=== PATIENT | male | born 1990 | race Caucasian/White ===

== ENCOUNTER 2017-10-11 06:39 | Emergency (ER) | payer MEDICAID, OTHER ==
[~2017-10-11] VITALS: Ht 185.4 cm; Wt 70.4 kg
[2017-10-11] MEDS ORDERED: ONDANSETRON ODT 4 MG ONE (07:13)
[2017-10-11] MEDS ORDERED: KETOROLAC 30 MG/1 ML ONE (07:13)
[2017-10-11] MEDS ORDERED: MORPHINE SULFATE 4 MG/ML, 1ML ONE (07:13)
[2017-10-11] MEDS ORDERED: MORPHINE SULFATE 4 MG/ML, 1ML IVPush PRN (07:30)
[2017-10-11] MEDS ORDERED: KETOROLAC 30 MG/1 ML IVPush ONE (07:30)
[2017-10-11] MEDS ORDERED: SODIUM CHLORIDE FLUSH 10ML SYR IVF ONE (07:30)
[2017-10-11] MEDS ORDERED: ONDANSETRON ODT 4 MG PO ONE (07:30)
[2017-10-11 07:51] LABS: ALBUMIN 3.7 g/dL (3.4-5.0); ANION GAP 12 mmol/L (5-15); CALCIUM 8.7 mg/dL (8.5-10.1); CHLORIDE 108 mmol/L (98-107); CREATININE 1.07 mg/dL (0.7-1.3)
[2017-10-11 07:56] LABS: BASOPHILS # (AUTO) 0.04 x10^3/uL (0-0.1); BASOPHILS % (AUTO) 1 % (0-1); EOSINOPHILS % (AUTO) 2 % (1-7); LYMPHOCYTES % (AUTO) 47 % (22-44); MD NO; MEAN CORPUSCULAR HEMOGLOBIN 30.9 pg (27.5-34.5); MEAN CORPUSCULAR HGB CONC 33.8 g/dL (33.2-36.2); MEAN CORPUSCULAR VOLUME 91.3 fL (81-97); MEAN PLATELET VOLUME 7.4 fL (7.4-10.4); MONOCYTES # (AUTO) 0.54 x10^3/uL (0.2-0.8); MONOCYTES % (AUTO) 8 % (2-9); NEUTROPHILS # (AUTO) 2.86 x10^3/uL (1.8-6.8); NEUTROPHILS % (AUTO) 43 % (42-75); PLATELET COUNT 277 x10^3/uL (130-400); RED BLOOD COUNT 5.09 x10^6/uL (4.38-5.82)
[2017-10-11] MEDS ORDERED: METOCLOPRAMIDE 5 MG/ML, 2ML IVPush ONE (08:30)
[2017-10-11 09:22] LABS: CULTURE INDICATED? YES; MICROSCOPIC INDICATED
[2017-10-11 11:18] VITALS: BP 128/74
== END 2017-10-11 11:21 | disposition home or self-care (01) ==
LOC: ED 09:20
DX: N20.2 Calculus of kidney with calculus of ureter (principal); F17.200 Nicotine dependence, unspecified, uncomplicated
CPT/HCPCS: 36415; 74176; 80048; 81001; 82040; 85025; 87086; 96374; 96375; 99285; J1885; Q0162

== ENCOUNTER 2020-05-18 12:24 | Emergency (ER) | payer MEDICAID ==
[~2020-05-18] VITALS: Ht 185.4 cm; Wt 71.0 kg
[2020-05-18 15:19] VITALS: BP 148/69
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
[2020-05-18] MEDS ORDERED: CYCLOBENZAPRINE 10 MG TABLET ONE (17:25)
[2020-05-18] MEDS ORDERED: KETOROLAC 60 MG/2 ML ONE (17:25)
[2020-05-18] MEDS ORDERED: KETOROLAC 30 MG/1 ML IM ONE (17:30)
[2020-05-18] MEDS ORDERED: CYCLOBENZAPRINE 10 MG TABLET PO ONE (17:30)
--- NOTE | 2020-05-18 17:41 | NUR ---
Patient/Caregiver given discharge instructions and they have confirmed that they understand the instructions. Patient ambulatory with steady gait.
== END 2020-05-18 17:42 | disposition home or self-care (01) ==
LOC: ED 14:29
DX: S20.212A Contusion of left front wall of thorax, initial encounter (principal); F17.200 Nicotine dependence, unspecified, uncomplicated; X58.XXXA Exposure to other specified factors, initial encounter; Y93.89 Activity, other specified; Y92.098 Other place in other non-institutional residence as the place of occurrence of the external cause; Y99.8 Other external cause status
CPT/HCPCS: 71046; 96372; 99283; J1885

== ENCOUNTER 2020-09-29 08:50 | Emergency (ER) | payer MEDICAID ==
[~2020-09-29] VITALS: Ht 185.4 cm; Wt 69.3 kg
--- NOTE | 2020-09-29 09:01 | NUR ---
NO ANSWER FROM [facility]OBBY X1
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
--- NOTE | 2020-09-29 10:12 | NUR ---
PT ASLEEP IN [facility]. RESPIRATIONS EVEN AND UNLABORED. AWAITNG SPLINT.
[2020-09-29 11:25] VITALS: BP 133/74
--- NOTE | 2020-09-29 11:26 | NUR ---
Patient/Caregiver given discharge instructions and they have confirmed that they understand the instructions. Patient ambulatory with steady gait.
== END 2020-09-29 11:27 | disposition home or self-care (01) ==
LOC: ED 09:53
DX: S62.346A Nondisplaced fracture of base of fifth metacarpal bone, right hand, initial encounter for closed fracture (principal); M79.89 Other specified soft tissue disorders; F17.200 Nicotine dependence, unspecified, uncomplicated; X58.XXXA Exposure to other specified factors, initial encounter; Y93.89 Activity, other specified; Y92.89 Other specified places as the place of occurrence of the external cause; Y99.8 Other external cause status
CPT/HCPCS: 29125; 99283

== ENCOUNTER 2020-11-20 05:09 | Emergency (ER) | payer MEDICAID ==
[~2020-11-20] VITALS: Ht 185.4 cm; Wt 71.1 kg
[2020-11-20 05:12] VITALS: BP 117/80
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
--- NOTE | 2020-11-20 06:14 | NUR ---
Patient given discharge instructions and they have confirmed that they understand the instructions. Patient ambulatory with steady gait.
== END 2020-11-20 06:16 | disposition home or self-care (01) ==
LOC: ED 05:39
DX: K59.00 Constipation, unspecified (principal); M54.5 Low back pain
CPT/HCPCS: 74018; 99283